=== PATIENT | female | born 1995 | race Caucasian/White ===

== ENCOUNTER 2019-08-15 09:22 | Emergency (ER) | payer OTHER ==
[~2019-08-15] VITALS: Ht 152.4 cm; Wt 52.2 kg
[~2019-08-15 09:22] MED LIST: NAPROSYN500 MG PO
[2019-08-15] MEDS ORDERED: CLINDAMYCIN HC150 MG PO (10:29)
[2019-08-15] MEDS ORDERED: MOBIC15 MG PO (10:29)
[2019-08-15 10:40] VITALS: BP 119/77
== END 2019-08-15 10:41 | disposition home or self-care (01) ==
LOC: ER 09:22
DX: K04.7 Periapical abscess without sinus (principal); F17.210 Nicotine dependence, cigarettes, uncomplicated

== ENCOUNTER 2021-03-14 14:07 | Emergency (ER) | payer OTHER ==
[~2021-03-14] VITALS: Ht 152.4 cm; Wt 49.0 kg
[~2021-03-14 14:07] MED LIST changes: +CLINDAMYCIN HC150 MG PO; +MOBIC15 MG PO
[2021-03-14 14:08] VITALS: BP 106/69
[2021-03-14 15:42] LABS: URINE BILIRUBIN NEGATIVE (Negative); URINE BLOOD NEGATIVE (Negative); URINE COLOR YELLOW; URINE GLUCOSE-RANDOM* NEGATIVE (Negative); URINE KETONES TRACE (Negative); URINE NITRITE-REFLEX NEGATIVE (Negative); URINE PROTEIN (DIPSTICK) NEGATIVE (Negative)
[2021-03-14 15:46] LABS: URINE CLARITY HAZY; URINE LEUKOCYTES-REFLEX 1+ (Negative)
[2021-03-14 16:00] LABS: SQUAMOUS >10 Many /LPF (0-3); URINE RBC None Seen /HPF (NONE SEEN); URINE WBC-REFLEX 6-15 Few /HPF (0-5)
[2021-03-14 16:01] LABS: CASTS None Seen /LPF (None Seen); CRYSTALS None Seen /LPF (None Seen)
[2021-03-14] MEDS ORDERED: CEPHALEXIN500 MG PO (16:55)
== END 2021-03-14 17:23 | disposition home or self-care (01) ==
LOC: ER 14:07
PROVIDERS: Physician Assistant
DX: N39.0 Urinary tract infection, site not specified (principal); F17.210 Nicotine dependence, cigarettes, uncomplicated; Z90.49 Acquired absence of other specified parts of digestive tract